=== PATIENT | female | born 1995 | race Caucasian/White ===

== ENCOUNTER 2016-10-16 12:48 | Emergency (ER) | payer MEDICAID, OTHER ==
[2016-10-16 13:03] VITALS: BP 113/73; PULSE 80; RESP 18; TEMP 98.9; O2SAT 98; BMI 22.6
[2016-10-16] MEDS ORDERED: Tmp-Smz 800 mg-160 mg DS Tab PO STA (13:06)
--- NOTE | 2016-10-16 13:10 | ED PDOC ---
Arrival/HPI - General Chief Complaint: Abnormal Skin Integrity Time Seen by Provider: 10/16/16 13:06 Historian: Patient - History of Present Illness Narrative History of Present Illness (Text): 10/16/16 13:14 20yo female with no PMHx present with complaint of redness to her left forearm since this morning. States area became itchy after insect bite yesterday. Noticed that the area became red and swollen this morning. she otherwise denies pain, fever, chills, any other complaint. Past Medical History - Provider Review Nursing Documentation Reviewed: Yes - Past History Past History: No Previous - Cardiac Hx Cardiac Disorders: No - Pulmonary Hx Respiratory Disorders: No - Neurological Hx Neurological Disorder: No - HEENT Hx HEENT Disorder: No - Renal Hx Renal Disorder: No - Endocrine/Metabolic Hx Endocrine Disorders: No - Hematological/Oncological Hx Blood Disorders: No - Integumentary Hx Dermatological Disorder: No - Musculoskeletal/Rheumatological Hx Musculoskeletal Disorders: No - Gastrointestinal Hx Gastrointestinal Disorders: No - Genitourinary/Gynecological Hx Genitourinary Disorders: No - Psychiatric Hx Psychophysiologic Disorder: No Hx Substance Use: No - Past Surgical History Past Surgical History: No Previous - Suicidal Assessment Feels Threatened In Home Enviroment: No Family/Social History - Physician Review Nursing Documentation Reviewed: Yes Family/Social History: Unknown Family HX Smoking Status: Never Smoked Hx Alcohol Use: No Hx Substance Use: No Allergies/Home Meds Allergies/Adverse Reactions: Allergies No Known Allergies Allergy (Verified 10/16/16 13:03) Review of Systems - Physician Review All systems were reviewed & negative as marked: Yes - Review of Systems Constitutional: Normal Eyes: Normal ENT: Normal Respiratory: Normal Cardiovascular: Normal Gastrointestinal: Normal Genitourinary Female: Normal Musculoskeletal: Normal Skin: Cellulitis, Other Neurological: Normal Endocrine: Normal Hemo/Lymphatic: Normal Psychiatric: Normal Physical Exam Vital Signs Reviewed: Yes Vital Signs Temp Pulse Resp BP Pulse Ox 10/16/16 12:59 98.9 F 80 18 113/73 98 Temperature: Afebrile Blood Pressure: Normal Pulse: Regular Respiratory Rate: Normal Appearance: Positive for: Well-Appearing, Non-Toxic, Comfortable Pain Distress: None Mental Status: Positive for: Alert and Oriented X 3 - Systems Exam Head: Present: Atraumatic, Normocephalic Pupils: Present: PERRL Extroacular Muscles: Present: EOMI Conjunctiva: Present: Normal Mouth: Present: Moist Mucous Membranes Neck: Present: Normal Range of Motion Respiratory/Chest: Present: Clear to Auscultation, Good Air Exchange. No: Respiratory Distress, Accessory Muscle Use Cardiovascular: Present: Regular Rate and Rhythm, Normal S1, S2. No: Murmurs Abdomen: Present: Normal Bowel Sounds. No: Tenderness, Distention, Peritoneal Signs Back: Present: Normal Inspection Upper Extremity: Present: Normal Inspection. No: Cyanosis, Edema Lower Extremity: Present: Normal Inspection. No: Edema Neurological: Present: GCS=15, CN II-XII Intact, Speech Normal Skin: Present: Warm, Dry, Normal Color, Erythematous (Approximately 9 x 5cm mildy raised erythematous patch noted on left flexor distal forearm. No tenderness to palpation. No warmth. ). No: Rashes Psychiatric: Present: Alert, Oriented x 3, Normal Insight, Normal Concentration Disposition/Present on Arrival - Present on Arrival Any Indicators Present on Arrival: No History of DVT/PE: No History of Uncontrolled Diabetes: No Urinary Catheter: No History of Decub. Ulcer: No History Surgical Site Infection Following: None - Disposition Have Diagnosis and Disposition been Completed?: Yes Diagnosis: Cellulitis, Insect bite Disposition: HOME/ ROUTINE Disposition Time: 13:10 Patient Plan: Discharge Condition: STABLE Discharge Instructions (ExitCare): Cellulitis (ED) Additional Instructions: Take medication as directed Follow up with your doctor Return to ED for worsening redness, fever Prescriptions: Cephalexin [Keflex] 500 mg PO QID #28 capsule Sulfamethoxazole/Trimethoprim [Bactrim DS 800 mg-160 mg] 1 tab PO BID #14 tab [place] [facility] [place] [facility] [place] - Follow up with primary
[2016-10-16] MEDS ORDERED: DiphenhydrAMINE 12.5 mg/5 ml LIQ UD (5 ml) PO STA (13:14)
== END 2016-10-16 14:17 | disposition home or self-care (01) ==
LOC: ED 12:48
DX: S50.862A Insect bite (nonvenomous) of left forearm, initial encounter (principal); W57.XXXA Bitten or stung by nonvenomous insect and other nonvenomous arthropods, initial encounter; L03.114 Cellulitis of left upper limb

== ENCOUNTER 2016-10-30 23:42 | Emergency (ER) | payer MEDICAID ==
[2016-10-30 23:55] VITALS: BMI 24.5
[2016-10-30 23:57] VITALS: BP 104/57; PULSE 71; RESP 16; TEMP 99; O2SAT 100
--- NOTE | 2016-10-31 01:17 | ED PDOC ---
Arrival/HPI <Andrew Diallo - Last Filed: 10/31/16 01:32> - General Historian: Patient - History of Present Illness Time/Duration: Other (yesterday) Symptom Onset: Gradual Symptom Course: Unchanged Activities at Onset: Rest, Light Context: Home <Zoey Sy PA-C - Last Filed: 10/31/16 02:12> - General Chief Complaint: Abnormal Skin Integrity Time Seen by Provider: 10/31/16 00:41 - History of Present Illness Narrative History of Present Illness (Text): 10/31/16 00:40 20 year old female who presents to the Emergency department complaining of a painful, pruritic rash to her left neck and left arm since yesterday. Patient states she took Benadryl with improved her rash slightly, but is still present. Patient states she has been diagnosed for cellulitis in the past but had only one lesion to left forearm. Patient states she was seen here in the Emergency department, diagnosed with possible cellulitis, and prescribed antibiotics. Patient states took 1 dose of previous antibiotics from her last visit, but denies any improvement. Patient denies any changes in diet, medications, soaps, lotions, or detergents. Patient denies any fever, chills, chest pain, shortness of breath, URI symptoms, nausea, vomiting, headache, dizziness, or any other complaints. (Zoey Sy PA-C) Past Medical History - Provider Review Nursing Documentation Reviewed: Yes - Past History Past History: No Previous - Cardiac Hx Cardiac Disorders: No - Pulmonary Hx Respiratory Disorders: No - Neurological Hx Neurological Disorder: No - HEENT Hx HEENT Disorder: No - Renal Hx Renal Disorder: No - Endocrine/Metabolic Hx Endocrine Disorders: No - Hematological/Oncological Hx Blood Disorders: No - Integumentary Hx Dermatological Disorder: No - Musculoskeletal/Rheumatological Hx Musculoskeletal Disorders: No - Gastrointestinal Hx Gastrointestinal Disorders: No - Genitourinary/Gynecological Hx Genitourinary Disorders: No - Psychiatric Hx Psychophysiologic Disorder: No Hx Substance Use: No - Past Surgical History Past Surgical History: No Previous - Suicidal Assessment Feels Threatened In Home Enviroment: No <Zoey Sy PA-C - Last Filed: 10/31/16 02:12> Family/Social History - Physician Review Nursing Documentation Reviewed: Yes Family/Social History: No Known Family HX Smoking Status: Never Smoked Hx Alcohol Use: No Hx Substance Use: No <Zoey Sy PA-C - Last Filed: 10/31/16 02:12> Allergies/Home Meds <Andrew Diallo - Last Filed: 10/31/16 01:32> <Zoey Sy PA-C - Last Filed: 10/31/16 02:12> Allergies/Adverse Reactions: Allergies No Known Allergies Allergy (Verified 10/16/16 13:03) Review of Systems - Physician Review All systems were reviewed & negative as marked: Yes - Review of Systems Constitutional: Normal. absent: Fevers Eyes: Normal ENT: Normal. absent: Sore Throat, Rhinorrhea Respiratory: Normal. absent: SOB, Cough Cardiovascular: Normal. absent: Chest Pain Gastrointestinal: Normal. absent: Abdominal Pain, Diarrhea, Nausea, Vomiting Genitourinary Female: Normal. absent: Dysuria, Frequency, Hematuria, Urine Output Changes Musculoskeletal: Normal. absent: Back Pain, Neck Pain Skin: Rash, Pruritis Neurological: Normal Endocrine: Normal Hemo/Lymphatic: Normal Psychiatric: Normal <Zoey Sy PA-C - Last Filed: 10/31/16 02:12> Physical Exam <Andrew Diallo - Last Filed: 10/31/16 01:32> Vital Signs Reviewed: Yes Temperature: Afebrile Blood Pressure: Normal Pulse: Regular Respiratory Rate: Normal Appearance: Positive for: Well-Appearing, Non-Toxic, Comfortable Pain Distress: None Mental Status: Positive for: Alert and Oriented X 3 - Systems Exam Head: Present: Atraumatic, Normocephalic Pupils: Present: PERRL Extroacular Muscles: Present: EOMI Conjunctiva: Present: Normal Ears: Present: Normal, NORMAL TM, Normal Canal. No: Erythema, TM Bulging, TM Perf Mouth: Present: Moist Mucous Membranes Pharnyx: Present: Normal. No: ERYTHEMA, EXUDATE, TONSILS ENLARGED, Peritonsilar Swelling, Uvular Deviation, Strider, Soft Palate/Uvular Edema Nose (External): Present: Atraumatic Nose (Internal): Present: Normal Inspection Neck: Present: Normal Range of Motion Respiratory/Chest: Present: Clear to Auscultation, Good Air Exchange. No: Respiratory Distress, Accessory Muscle Use Cardiovascular: Present: Regular Rate and Rhythm, Normal S1, S2. No: Murmurs Abdomen: Present: Normal Bowel Sounds. No: Tenderness, Distention, Peritoneal Signs Back: Present: Normal Inspection Upper Extremity: Present: Normal Inspection. No: Cyanosis, Edema Lower Extremity: Present: Normal Inspection. No: Edema Neurological: Present: GCS=15, CN II-XII Intact, Speech Normal Skin: Present: Warm, Dry, Rashes (1 circular erythemtous raised rash to left arm , 4 of varying sizes to left neck, and 2 areas of circular erythemtous raised rash to left chest), Normal Color Psychiatric: Present: Alert, Oriented x 3, Normal Insight, Normal Concentration <Zoey Sy PA-C - Last Filed: 10/31/16 02:12> Vital Signs Temp Pulse Resp BP Pulse Ox 10/30/16 23:56 99 F 71 16 104/57 L 100 Medical Decision Making <Andrew Diallo - Last Filed: 10/31/16 01:32> <Zoey Sy PA-C - Last Filed: 10/31/16 02:12> ED Course and Treatment: 10/31/16 00:40 Impression: 20 year old complaining of painful pruritic rash to left neck/arm. Differential Diagnosis include but are not limited to: contact dermatitis vs. allergic reaction vs. rash Plan: -- Benadryl PO -- Reassess and disposition Based on history, exam and diagnostic results plan will be for outpatient follow -up with PMD or dermatology referral provided. Patient advised to continue taking [id number] Benadryl or Zyrtec for the following symptoms. Prescription provided for hydrocortisone topical cream. Patient states she fully agrees with and understands discharge instructions. States that she agrees with the plan and disposition. Verbalized and repeated discharge instructions and plan. I have given the patient opportunity to ask any additional questions. Follow up with primary care physician and dermatology referral provided in 1-2 days without fail. Advised to take medication as prescribed. Return to the emergency room at any time for any new or worsening symptoms. (Zoey Sy PA-C) - Medication Orders Current Medication Orders: Discontinued Medications Diphenhydramine HCl (Benadryl) 50 mg PO STAT STA Stop: 10/31/16 00:42 Last Admin: 10/31/16 00:51 Dose: 50 mg - PA / CONTRACT FORESTER / Resident Statement LAVERNE has reviewed & agrees with the documentation as recorded. <Andrew Diallo - Last Filed: 10/31/16 01:32> - PA / CONTRACT FORESTER / Resident Statement LAVERNE has reviewed & agrees with the documentation as recorded. - Scribe Statement The provider has reviewed the documentation as recorded by the Scribe <Zoey Sy PA-C - Last Filed: 10/31/16 02:12> - Scribe Statement Jaycee Nash All medical record entries made by the Scribe were at my direction and personally dictated by me. I have reviewed the chart and agree that the record accurately reflects my personal performance of the history, physical exam, medical decision making, and the department course for this patient. I have also personally directed, reviewed, and agree with the discharge instructions and disposition. (Zoey Sy PA-C) Disposition/Present on Arrival <Andrew Diallo - Last Filed: 10/31/16 01:32> - Present on Arrival Any Indicators Present on Arrival: No History of DVT/PE: No History of Uncontrolled Diabetes: No Urinary Catheter: No History of Decub. Ulcer: No History Surgical Site Infection Following: None - Disposition Have Diagnosis and Disposition been Completed?: Yes Disposition Time: 00:45 Patient Plan: Discharge <Zoey Sy PA-C - Last Filed: 10/31/16 02:12> - Disposition Diagnosis: Rash, Contact dermatitis Disposition: HOME/ ROUTINE Condition: GOOD Discharge Instructions (ExitCare): Contact Dermatitis (ED), Acute Rash (ED) Print Language: INDIAN Additional Instructions: Thank you for letting us take care of you today. You were treated for rash, consider to contact dermatitis. The emergency medical care you received today was directed at your acute symptoms. Take [id number] Zyrtec for your symptoms. If you were prescribed any medication, please fill it and take as directed. It may take several days for your symptoms to resolve. Return to the Emergency Department if your symptoms worsen, do not improve, or if you have any other problems. Please contact your doctor in 2 days for re-evaluation and follow up / or call one of the physicians/clinics you have been referred to that are listed on the Patient Visit Information form that is included in your discharge packet. Bring any paperwork you were given at discharge with you along with any medications you are taking to your follow up visit. Our treatment cannot replace ongoing medical care by a primary care provider (PCP) outside of the emergency department. Thank you for allowing the [facility] team to be part of your care today. Prescriptions: Hydrocortisone [place] 0.2% Cr [Westcort] 1 ea TP BID #15 tube Referrals: Hortensia Rodriguez MD [Staff Provider] - Follow up with primary Forms: SCHOOL NOTE, WORK NOTE
== END 2016-10-31 01:42 | disposition home or self-care (01) ==
LOC: ED 23:42
DX: L25.9 Unspecified contact dermatitis, unspecified cause (principal); R21 Rash and other nonspecific skin eruption